=== PATIENT | male | born 1970 | race Caucasian/White ===

== ENCOUNTER 2018-12-22 17:45 | Emergency (ER) | payer MEDICAID ==
--- NOTE | 2018-12-22 17:58 | EDPHY ---
H & P Stated Complaint: PS/SI - Personal History Current Tetanus/Diphtheria Vaccine: Yes - Medical/Surgical History Hx Asthma: No Hx Chronic Respiratory Disease: No Hx Diabetes: No Hx Cardiac Disease: No Hx Renal Disease: No Hx Cirrhosis: No Hx Alcoholism: No Other PMH: Depression, schizoid personality disorder - Social History Smoking Status: Heavy smoker Time Seen by Provider: 12/22/18 17:53 HPI/ROS: CHIEF COMPLAINT: Suicidal ideation HISTORY OF PRESENT ILLNESS: 48-year-old male in the ER voluntarily with his friend. Patient's history of schizoaffective disorder, complaining of increased depression and progressive thoughts of suicidality with plan to either hang himself shoot himself. He denies attempt. Denies acute alcohol or drug use. Denies intentional self-injurious behavior. Denies hallucination. PRIMARY CARE PROVIDER: REVIEW OF SYSTEMS: 10 systems reviewed and negative with the exception of the elements mentioned in the history of present illness PAST MEDICAL & SURGICAL HISTORY: Schizoaffective disorder SOCIAL HISTORY: Denies acute alcohol or drug use PHYSICAL EXAM (Prior to examination, patient consented to physical exam, hands were washed and my usual and customary physical exam procedures followed) 1) GENERAL: Poorly kept, untidy,, alert and oriented. Appears to be in no acute distress. Depressed, flat affect, crying 2) HEAD: Normocephalic, atraumatic 3) HEENT: Pupils equal, round, reactive to light bilaterally. Sclera anicteric. 4) NECK: Full range of motion, no meningeal signs. 5) LUNGS: Clear auscultation bilaterally, no wheezes, no rhonchi, no retractions. 6) HEART: Regular rate and rhythm, no murmur, no heave, no gallop. 7) ABDOMEN: No guarding, no rebound, no focal tenderness, negative McBurney's, negative Salas's, negative Rovsing's, negative peritoneal sign, 8) MUSCULOSKELETAL: Moving all extremities, no focal areas of tenderness, no obvious trauma. No peripheral edema or discoloration. 9) BACK: No CVA tenderness, no midline vertebral tenderness, no fluctuance, no step-off, no obvious trauma, no visual or palpable abnormality. 10) SKIN: No rash, no petechiae. 11) Psychiatric: Patient is oriented X 3, there is no agitation. Depressed, flat affect, crying DIFFERENTIAL DIAGNOSIS: [ In no particular order including but not limited to depression, suicidal ideation, homicidal ideation (Amanda Grant) Constitutional: Initial Vital Signs Temperature (C) 36.3 C 12/22/18 17:48 Heart Rate 108 H 12/22/18 17:48 Respiratory Rate 18 12/22/18 17:48 Blood Pressure 118/83 H 12/22/18 17:48 O2 Sat (%) 95 12/22/18 17:48 O2 Delivery Mode Room Air Allergies/Adverse Reactions: promethazine Allergy (Verified 12/22/18 17:50) Anaphylaxis Home Medications: Medication Instructions Recorded Seroquel 12/22/18 Medical Decision Making ED Course/Re-evaluation: 10:30 p.m., the patient has been accepted for transfer to [address] [place] [address] for inpatient psychiatric management. Accepting physician is Dr. Quiles. I filled out the appropriate transfer paperwork. The patient's remaining emergency department course under my care has been uneventful. The patient was transferred in stable condition. (Santiago Braswell) 5:58 p.m.: Patient actively endorses suicidal ideation plan to either shoot himself or hang himself. Patient presents to the ER voluntarily. Consultation with secondary supine position Dr. Braswell patient's placed on M1 hold. ( Amanda Grant) - Data Points Laboratory Results: Laboratory Results 12/22/18 18:00 12/22/18 18:00 12/22/18 12/22/18 12/22/18 18:00 18:00 18:00 WBC 11.28 10^3/uL H 10^3/uL (3.80-9.50) RBC 5.02 10^6/uL 10^6/uL (4.40-6.38) Hgb 15.5 g/dL g/dL (13.7-17.5) Hct 45.2 % % (40.0-51.0) MCV 90.0 fL fL (81.5-99.8) MCH 30.9 pg pg (27.9-34.1) MCHC 34.3 g/dL g/dL (32.4-36.7) RDW 13.0 % % (11.5-15.2) Plt Count 251 10^3/uL 10^3/uL (150-400) MPV 9.8 fL fL (8.7-11.7) Neut % (Auto) 57.9 % % (39.3-74.2) Lymph % (Auto) 29.6 % % (15.0-45.0) [place] % (Auto) 10.1 % % (4.5-13.0) Eos % (Auto) 1.4 % % (0.6-7.6) Baso % (Auto) 0.6 % % (0.3-1.7) Nucleat RBC Rel Count 0.0 % % (0.0-0.2) Absolute Neuts (auto) 6.53 10^3/uL H 10^3/uL (1.70-6.50) Absolute Lymphs (auto) 3.34 10^3/uL H 10^3/uL (1.00-3.00) Absolute Monos (auto) 1.14 10^3/uL H 10^3/uL (0.30-0.80) Absolute Eos (auto) 0.16 10^3/uL 10^3/uL (0.03-0.40) Absolute Basos (auto) 0.07 10^3/uL 10^3/uL (0.02-0.10) Absolute Nucleated RBC 0.00 10^3/uL 10^3/uL (0-0.01) Immature Gran % 0.4 % % (0.0-1.1) Immature Gran # 0.04 10^3/uL 10^3/uL (0.00-0.10) Sodium 139 mEq/L mEq/L (135-145) Potassium 4.0 mEq/L mEq/L (3.5-5.2) Chloride 110 mEq/L mEq/L (97-110) Carbon Dioxide 23 mEq/l mEq/l (22-31) Anion Gap 6 mEq/L mEq/L (6-14) BUN 22 mg/dL mg/dL (7-23) Creatinine 1.0 mg/dL mg/dL (0.7-1.3) Estimated GFR > 60 Glucose 106 mg/dL H mg/dL (70-100) Calcium 9.1 mg/dL mg/dL (8.5-10.4) Salicylates < 1.0 mg/dL L mg/dL (2.0-20.0) Urine Opiates Screen NEGATIVE (NEGATIVE) Acetaminophen < 10 mcg/mL L mcg/mL (10-30) Urine Barbiturates NEGATIVE (NEGATIVE) Ur Phencyclidine Scrn NEGATIVE (NEGATIVE) Ur Amphetamine Screen NEGATIVE (NEGATIVE) U Benzodiazepines Scrn NEGATIVE (NEGATIVE) Urine Cocaine Screen NEGATIVE (NEGATIVE) U Marijuana (THC) Screen NON-NEGATIVE H (NEGATIVE) Ethyl Alcohol < 10 mg/dL mg/dL (0-10) Departure - Departure Disposition: [facility] IP Clinical Impression: Suicidal ideation Condition: Fair Referrals: NONE *PRIMARY CARE P,. [Primary Care Provider] - As per Instructions
[2018-12-22 18:30] LABS: PLATELET COUNT 251 10^3/uL (150-400)
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
--- NOTE | 2018-12-22 21:16 | ASMTLCPROG ---
Notes Note: Notes: Hospitalist has been paged to see this pt in EDif possible. Date Signed: 12/22/2018 09:15 PM Electronically Signed By:Sherrie Napier
--- NOTE | 2018-12-22 21:20 | ASMTTCLDSP ---
TLC Discharge Disposition Disposition: Answers: Admit Disposition Notes: Notes: In consultation with [facility] ED MD, Santiago Braswell and on-call psyciatrist, Catrachita Quiles MD, both concurred that pt appears to meet the 27-65 criteria rquiring psychiatric hospitalization as pt does appear to be an imminent risk for self harm due to a mental illness condition. For inpatient Catrachita Quiles MD admission, the following psychiatrist agreed to accept patient for admission to [facility]): Type of Hold: Answers: M1/72-hour Hold Hold initiated by: Answers: ED Physician Date Signed: 12/22/2018 09:19 PM Electronically Signed By:Sherrie Napier
--- NOTE | 2018-12-22 22:45 | ASMTLCPROG ---
Notes Note: Notes: Just received word that pt has not been approved for in-pt hospitalization. Preently faxing clinials to Jacklyn Harrison and [facility] Date Signed: 12/22/2018 10:44 PM Electronically Signed By:Sherrie Napier
[2018-12-23 08:29] VITALS: BP 122/68
== END 2018-12-23 12:14 ==
PROC: GZ11ZZZ Psychological Tests, Personality and Behavioral (ICD-10-PCS; principal; 2018-12-22)
DX: R45.851 Suicidal ideations (principal)
CPT/HCPCS: 80305; G0480